=== PATIENT | female | born 1995 | race Two or more races ===

== ENCOUNTER 2018-08-02 17:19 | Emergency (ER) | payer SELFPAY ==
[2018-08-02] MEDS ORDERED: FAMOTIDINE 20 MG TABLET PO ONE (18:15)
[2018-08-02] MEDS ORDERED: METOCLOPRAMIDE HCL ORAL SOLN 10 MG/10 ML UDCUP PO ONE (18:15)
[2018-08-02] MEDS ORDERED: LIDOCAINE 2% VISCOUS SOLN 20 ML UDCUP PO ONE (18:15)
[2018-08-02] MEDS ORDERED: MAG HYDROX/AL HYDROX/SIMETH SUSP 30 ML UDCUP PO ONE (18:15)
--- NOTE | 2018-08-02 18:19 | ER Document Report ---
ED General - General Chief Complaint: Abdominal Pain Stated Complaint: ABDOMINAL PAIN Time Seen by Provider: 08/02/18 18:08 Mode of Arrival: Ambulatory Information source: Patient Notes: 23-year-old female presents emergency department with epigastric abdominal pain. She describes it as a burning sensation. She has had associated nausea and vomiting. No radiation of the pain. No alleviating or exacerbating factors. No association with food. Patient states that she has had intermittent episodes over the last couple of months. Patient states that she just gave 2 months ago. She states that the episodes last about 20 minutes. When she has the abdominal pain she is also having associated nausea and vomiting. Patient states that when the episodes resolves all of her symptoms go away. She denies any medical problems. She has not taken any medication for her symptoms. She denies any diarrhea, constipation, vaginal bleeding, vaginal discharge, dysuria, hematuria. TRAVEL OUTSIDE OF THE [place] IN LAST 30 DAYS: No - HPI Onset: Other - months Quality of pain: Burning Severity: None Associated symptoms: Nausea, Vomiting Exacerbated by: Denies Relieved by: Denies Similar symptoms previously: Yes Recently seen / treated by doctor: No - Related Data Allergies/Adverse Reactions: No Known Allergies Allergy (Verified 11/29/14 14:18) Past Medical History - General Information source: Patient - Social History Smoking Status: Never Smoker Chew tobacco use (# tins/day): No Frequency of alcohol use: None Drug Abuse: None Family History: Other - Migraine headaches Patient has suicidal ideation: No Patient has homicidal ideation: No Neurological Medical History: Reports: Hx Migraine Renal/ Medical History: Denies: Hx Peritoneal Dialysis Past Surgical History: Reports: Hx Orthopedic Surgery - left thumb - Immunizations Hx Diphtheria, Pertussis, Tetanus Vaccination: No Review of Systems - Review of Systems Constitutional: No symptoms reported EENT: No symptoms reported Cardiovascular: No symptoms reported Respiratory: No symptoms reported Gastrointestinal: Abdominal pain, Nausea, Vomiting Genitourinary: No symptoms reported Female Genitourinary: No symptoms reported Musculoskeletal: No symptoms reported Skin: No symptoms reported Hematologic/Lymphatic: No symptoms reported Neurological/Psychological: No symptoms reported -: Yes All other systems reviewed and negative Physical Exam - Vital signs Vitals: Temp Pulse Resp BP Pulse Ox 97.3 F 62 16 117/59 L 100 08/02/18 17:26 08/02/18 17:26 08/02/18 17:26 08/02/18 17:26 08/02/18 17:26 - General Notes: PHYSICAL EXAMINATION: GENERAL: Well-appearing, well-nourished and in no acute distress. HEAD: Atraumatic, normocephalic. EYES: Pupils equal round and reactive to light, extraocular movements intact, conjunctiva are normal. ENT: Nares patent, oropharynx clear without exudates. Moist mucous membranes. NECK: Normal range of motion, supple without lymphadenopathy LUNGS: Breath sounds clear to auscultation bilaterally and equal. No wheezes rales or rhonchi. HEART: Regular rate and rhythm without murmurs ABDOMEN: Soft, tenderness in the epigastric area. No guarding, no rebound. No masses appreciated. Female : deferred Musculoskeletal: Normal range of motion, no pitting or edema. No cyanosis. NEUROLOGICAL: Cranial nerves grossly intact. Normal speech, normal gait. Normal sensory, motor exams PSYCH: Normal mood, normal affect. SKIN: Warm, Dry, normal turgor, no rashes or lesions noted. Course - Re-evaluation Re-evalutation: 08/02/18 19:41 Patient has tenderness to palpation in the epigastric area. No RUQ or LUQ tenderness to palpation. Patient given a GI cocktail. On re-evaluation, patient says that her symptoms have resolved. I discussed the labs and imaging with the patient. Contaminated urine vs UTI. I instructed her to take OTC medication for gastritis and to follow up with the primary care physician for a follow up appointment. Patient is agreeable with the plan of care. 08/02/18 19:47 - Vital Signs Vital signs: Temp Pulse Resp BP Pulse Ox 97.3 F 62 16 117/59 L 100 08/02/18 17:26 08/02/18 17:26 08/02/18 17:26 08/02/18 17:26 08/02/18 17:26 - Laboratory Result Diagrams: 08/02/18 18:30 08/02/18 18:30 Laboratory results interpreted by me: 08/02/18 08/02/18 08/02/18 18:30 18:30 18:30 WBC 12.0 H Hgb 11.3 L Hct 35.2 L MCV 76 L MCH 24.2 L RDW 16.4 H Seg Neutrophils % 86.8 H Lymphocytes % 7.4 L Absolute Neutrophils 10.4 H AST 177 H ALT 93 H Urine Blood LARGE H Urine Urobilinogen 2.0 H Ur Leukocyte Esterase SMALL H Urine Ascorbic Acid 20 H Discharge - Discharge Clinical Impression: UTI (urinary tract infection) Gastritis Qualifiers: Gastritis type: unspecified gastritis Chronicity: unspecified Gastritis bleeding: without bleeding Qualified Code(s): K29.70 - Gastritis, unspecified, without bleeding Condition: Good Disposition: HOME, SELF-CARE Instructions: Abdominal Pain ([facility]), Urinary Tract Infection ([facility]), Gastritis ( [facility]) Prescriptions: Cephalexin Monohydrate [Keflex 500 mg Capsule] 500 mg PO Q6H 5 Days #20 capsule Referrals: DANICA COHEN MD [ACTIVE STAFF] - Follow up as needed
[2018-08-02 18:47] LABS: ABSOLUTE EOSINOPHILS # (AUTO) 0.1 10^3/uL (0.0-0.6); ABSOLUTE LYMPHOCYTES (AUTO) 0.9 10^3/uL (0.5-4.7); ABSOLUTE MONOCYTES (AUTO) 0.6 10^3/uL (0.1-1.4); ABSOLUTE NEUT (AUTO) 10.4 10^3/uL (1.7-8.2); BASOPHILS % (AUTO) 0.4 % (0-2); EOSINOPHILS % (AUTO) 0.6 % (0-6); HEMATOCRIT 35.2 % (36.0-47.0); HEMOGLOBIN 11.3 g/dL (12.0-15.5); LYMPHOCYTES % (AUTO) 7.4 % (13-45); MEAN CORPUSCULAR HEMOGLOBIN 24.2 pg (27.0-33.4); MEAN CORPUSCULAR VOLUME 76 fl (80-97); MONOCYTES % (AUTO) 4.8 % (3-13); PLATELET COUNT 222 10^3/uL (150-450); RED BLOOD COUNT 4.66 10^6/uL (3.72-5.28); RED CELL DISTRIBUTION WIDTH 16.4 % (11.5-14.0); SEGMENTED NEUTROPHILS % (AUTO) 86.8 % (42-78); TOTAL CELLS COUNTED % (AUTO) 100 %
[2018-08-02 18:54] LABS: APPEARANCE,URINE SLIGHTLY-CLOUDY; BILIRUBIN,URINE NEGATIVE (NEGATIVE); COLOR,URINE YELLOW; GLUCOSE, URINE NEGATIVE (NEGATIVE); KETONES,URINE NEGATIVE (NEGATIVE); LEUKOCYTE ESTERASE,URINE SMALL (NEGATIVE); NITRITE,URINE NEGATIVE (NEGATIVE); PROTEIN,URINE NEGATIVE (NEGATIVE)
[2018-08-02 19:07] LABS: ALANINE AMINOTRANSFERASE 93 U/L (9-52); ALBUMIN 4.4 g/dL (3.5-5.0); ALKALINE PHOSPHATASE 122 U/L (38-126); ANION GAP 11 (5-19); ASPARTATE AMINO TRANSFERASE 177 U/L (14-36); BILIRUBIN,DIRECT 0.4 mg/dL (0.0-0.4); BILIRUBIN,TOTAL 0.6 mg/dL (0.2-1.3); BLOOD UREA NITROGEN 15 mg/dL (7-20); CALCIUM 9.5 mg/dL (8.4-10.2); CARBON DIOXIDE 28 mmol/L (22-30); CHLORIDE 103 mmol/L (98-107); GLUCOSE 108 mg/dL (75-110); LIPASE 189.8 U/L (23-300); POTASSIUM 3.9 mmol/L (3.6-5.0); SODIUM 141.5 mmol/L (137-145); TOTAL PROTEIN 7.9 g/dL (6.3-8.2)
--- NOTE | 2018-08-02 19:33 | RADIOLOGY REPORT (SQ) ---
EXAM DESCRIPTION: ACUTE ABDOMEN SERIES COMPLETED DATE/TIME: 08/02/2018 7:18 pm REASON FOR STUDY: epigastric abdominal pain COMPARISON: None. NUMBER OF VIEWS: One view. TECHNIQUE: Supine radiographic image of the abdomen acquired. LIMITATIONS: None. FINDINGS: BOWEL GAS PATTERN: Non-obstructive bowel gas pattern. No dilated loops. CALCIFICATIONS: No suspicious calcifications. SOFT TISSUES: No gross mass or suggestion of organomegaly. HARDWARE: None in the abdomen. BONES: No acute fracture. No worrisome bone lesions. OTHER: No other significant finding. IMPRESSION: NO RADIOGRAPHIC EVIDENCE FOR ACUTE ABDOMINAL DISEASE. TECHNICAL DOCUMENTATION: JOB ID: [id number] 2010 [employer]- All Rights Reserved Reading location - IP/workstation name: [email or web address]
[2018-08-02 19:56] VITALS: BP 115/60
== END 2018-08-02 19:50 | disposition home or self-care (01) ==
LOC: ER 17:19
DX: N39.0 Urinary tract infection, site not specified (principal); K29.70 Gastritis, unspecified, without bleeding; R10.13 Epigastric pain; R11.2 Nausea with vomiting, unspecified
CPT/HCPCS: 99284; 36415; 83690; 85025; 81025; 80053; 81001; 74022; J3490